=== PATIENT | male | born 1985 | race Caucasian/White ===

== ENCOUNTER 2018-02-16 21:02 | Emergency (ER) | payer OTHER ==
[~2018-02-16] VITALS: Ht 188 cm; Wt 90.7 kg
[~2018-02-16 21:02] MED LIST: BISA5EC PO; Bactrim Ds Tab1 EACH PO; CEPH500 PO; DIPH50 PO; MAGCIT300 PO; NAPR550 PO; PRED20 PO
[2018-02-16] MEDS ORDERED: IBUP600 PO (22:16)
== END 2018-02-16 22:27 | disposition home or self-care (01) ==
LOC: ER 21:02
DX: S43.401A Unspecified sprain of right shoulder joint, initial encounter (principal); M54.5 Low back pain; Z88.8 Allergy status to other drugs, medicaments and biological substances; Z87.891 Personal history of nicotine dependence; V27.9XXA Unspecified motorcycle rider injured in collision with fixed or stationary object in traffic accident, initial encounter
CPT/HCPCS: 72100; 73030

== ENCOUNTER 2025-04-16 02:09 | Emergency (ER) | payer OTHER ==
[~2025-04-16] VITALS: Ht 188 cm; Wt 90.7 kg
[~2025-04-16 02:09] MED LIST changes: +IBUP600 PO
[2025-04-16 02:30] VITALS: BP 143/90
== END 2025-04-16 03:19 | disposition home or self-care (01) ==
LOC: ER 02:09
DX: T63.441A Toxic effect of venom of bees, accidental (unintentional), initial encounter (principal)
CPT/HCPCS: 99282; A9270